=== PATIENT | male | born 1990 | race Caucasian/White ===

== ENCOUNTER 2021-07-13 12:07 | Emergency (ER) | payer OTHER ==
[~2021-07-13] VITALS: Ht 175.3 cm; Wt 97.7 kg
[2021-07-13 12:24] VITALS: BP 127/81; PULSE 95; TEMP 98.6
[2021-07-13] MEDS ORDERED: NORCO 325 MG-51 TAB PO (13:37)
[2021-07-13] MEDS ORDERED: CRUTCHES MC (13:38)
== END 2021-07-13 14:24 | disposition home or self-care (01) ==
LOC: COL.ER 12:07
DX: S93.401A Sprain of unspecified ligament of right ankle, initial encounter (principal); X50.1XXA Overexertion from prolonged static or awkward postures, initial encounter; Y93.02 Activity, running

== ENCOUNTER 2021-11-26 09:51 | Emergency (ER) | payer OTHER ==
[~2021-11-26] VITALS: Ht 175.3 cm; Wt 97.7 kg
[~2021-11-26 09:51] MED LIST: CRUTCHES MC; NORCO 325 MG-51 TAB PO
[2021-11-26 10:00] VITALS: TEMP 98
[2021-11-26] MEDS ORDERED: PREDNISONE10 MG PO (10:15)
[2021-11-26 10:29] VITALS: BP 133/88; PULSE 65
== END 2021-11-26 10:31 | disposition home or self-care (01) ==
LOC: COL.ER 09:51
DX: L23.7 Allergic contact dermatitis due to plants, except food (principal)
CPT/HCPCS: J7512